=== PATIENT | male | born 1940 | race Caucasian/White ===

== ENCOUNTER → 2019-07-02 | Outpatient (CLI) | payer MEDICARE ==
[~2019-07-02] MED LIST: ASPIR 8181 MG PO; ASPIRIN325; BENADRYL25 MG PO; BYSTOLIC 5 MG5 M1 PO; CEFDINIR300 MG PO; COLACE100 MG PO; CRESTOR20 MG PO; FERREX 150150 MG PO; FLOMAX0.4 MG PO; IMDUR 30 MG TAB30 M1 PO; MEDROLDOSEPACK PO; NORCO 5-325 TA1 EACH PO; NORVASC5 MG PO; PEPCID20 MG PO; PRILOSEC20 MG PO; TENORMIN25 MG PO; UNICOMPLEX M TA1 TA1 PO
== END ==
LOC: RAD 13:10
DX: I11.9 Hypertensive heart disease without heart failure (principal); Z95.0 Presence of cardiac pacemaker

== ENCOUNTER → 2020-01-12 | Outpatient (CLI) | payer MEDICARE | LOC: SJCVCIMAG 13:34 → SJCVC 14:31 → SJCVCIMAG 14:31 | PROVIDERS: ATTEND Internal Medicine | DX: R94.31 Abnormal electrocardiogram [ECG] [EKG] (principal); I25.10 Atherosclerotic heart disease of native coronary artery without angina pectoris; I73.9 Peripheral vascular disease, unspecified; E78.5 Hyperlipidemia, unspecified; I10 Essential (primary) hypertension; I25.2 Old myocardial infarction; Z95.0 Presence of cardiac pacemaker; Z79.899 Other long term (current) drug therapy; Z87.891 Personal history of nicotine dependence ==